=== PATIENT | female | born 1960 ===

== ENCOUNTER 2016-09-25 00:56 | Emergency (ER) | payer MEDICARE, MEDICAID ==
[2016-09-25 00:56] VITALS: BMI 26.6
[2016-09-25] MEDS ORDERED: Sodium Chloride 0.9% 1,000 ML IV ONE (01:48)
[2016-09-25] MEDS ORDERED: Sodium Chloride 0.9% 1,000 ML ONE (02:00)
[2016-09-25] MEDS ORDERED: Morphine 4 MG/ML VIAL ONE (02:01)
[2016-09-25 02:02] LABS: BASO # 0.2 K/uL (0.0-0.2); BASO % 1.2 % (0.0-2.0); EOS # 0.2 K/uL (0.0-0.7); EOS % 1.3 % (0.0-4.0); HEMATOCRIT 37.3 % (34.0-47.0); LYMPH # 3.5 K/uL (1.0-4.3); LYMPH % 26.2 % (20.0-40.0); MEAN CELL VOLUME 92.3 fL (81.0-99.0); MEAN CORPUSCULAR HEMOGLOBIN 30.4 pg (27.0-31.0); MEAN PLATELET VOLUME 7.9 fL (7.2-11.7); MONO # 0.9 K/uL (0.0-0.8); MONO % 7.1 % (0.0-10.0); WHITE BLOOD COUNT 13.2 K/uL (4.8-10.8)
[2016-09-25 02:12] LABS: CHLORIDE 101 mmol/L (98-107); POTASSIUM 3.7 mmol/L (3.6-5.2); SODIUM 135 mmol/L (132-148)
[2016-09-25 02:14] LABS: AST/SGOT 13 U/L (14-36); BILIRUBIN,TOTAL < 0.1 mg/dL (0.2-1.3); CARBON DIOXIDE 26 mmol/L (22-30); GFR AFRICAN-AMERICAN > 60
[2016-09-25 02:15] LABS: ALB/GLOB RATIO 1.3 (1.0-2.1); ALKALINE PHOSPHATASE 64 U/L (38-126); ALT/SGPT 26 U/L (9-52); BLOOD UREA NITROGEN 16 mg/dL (7-17); CALCIUM 8.3 mg/dl (8.6-10.4); GLUCOSE,RANDOM 133 mg/dL (65-105); TOTAL PROTEIN 6.7 g/dL (6.3-8.3)
[2016-09-25 02:42] LABS: RBC URINE 1 /hpf (0-3); URINE BILIRUBIN NEGATIVE (NEGATIVE); URINE BLOOD 1+ (NEGATIVE); URINE COLOR Straw (YELLOW); URINE GLUCOSE (UA) NORMAL (Normal); URINE KETONE NEGATIVE (NEGATIVE); URINE LEUKOCYTE ESTERASE NEG Leu/uL (Negative); URINE PROTEIN NEGATIVE (NEGATIVE); URINE UROBILINOGEN NORMAL mg/dL (0.2-1.0)
--- NOTE | 2016-09-25 02:52 | C.PDOC ---
History Of Present Illness A 55 y/o female presents to the ER c/o mid sternal chest pain that is non- radiating for 3 days, Pt notes pain worsens with movement and deep breathing. Pt reports pain to the lower back, and reports having a neuro-stimulater put in 20 days and activated 4 days ago and is now having back pain. Pt denies trauma, nausea, vomiting, no diaphoresis, numbness, weakness, or bowel/bladder incontinence. Time Seen by Provider: 09/25/16 01:25 Chief Complaint (Nursing): Chest Pain History Per: Patient History/Exam Limitations: no limitations Onset/Duration Of Symptoms: Days Current Symptoms Are (Timing): Still Present Severity: Mild Associated Symptoms: denies: Dyspnea, Diaphoresis Exacerbating Factors: Movement, Deep Breathing Recent travel outside of the [place]: No Additional History Per: Patient Past Medical History Reviewed: Historical Data, Nursing Documentation, Vital Signs Vital Signs: Last Vital Signs Temp 99.4 F 09/25/16 04:27 Pulse 85 09/25/16 04:27 Resp 15 09/25/16 04:27 BP 133/67 09/25/16 04:27 Pulse Ox 96 09/25/16 04:27 - Medical History PMH: Anxiety, Arthritis, Asthma, Back Problems (fractured disc had surgery 2 yrs. ago), Bronchitis, Depression, Diabetes, Diverticulitis, Emphysema, Gastritis, HTN, Hypercholesterolemia, Osteoporosis, Pneumonia Denies: Chronic Kidney Disease Surgical History: Back Surgery, Cholecystectomy - [facility] Procedures EXCISION INTERVERT DISC (09/17/14) FUSION/REFUS OF 2-3 VERTEBRAE (09/17/14) INSERTION OF INTERBODY SPINAL FUSION DEVICE (09/17/14) OTH CERVICAL FUSION OF ANTERIOR COLUMN, ANTERIOR TECHNIQUE (09/17/14) REPLACE OF R KNEE JT WITH SYNTH SUB, CEMENT, OPEN APPROACH (03/22/16) Family History: States: Unknown Family Hx - Social History Hx Tobacco Use: Yes Hx Alcohol Use: No Hx Substance Use: No - Immunization History Hx Tetanus Toxoid Vaccination: No Hx Influenza Vaccination: Yes Hx Pneumococcal Vaccination: Yes Review Of Systems Except As Marked, All Systems Reviewed And Found Negative. Constitutional: Negative for: Sweats, Other ([place]) Cardiovascular: Positive for: Chest Pain (Mid sternal chest pain) Gastrointestinal: Negative for: Nausea, Vomiting Neurological: Negative for: Weakness, Numbness Physical Exam - Physical Exam Appears: Non-toxic, No Acute Distress Skin: Warm, Dry, No Rash Head: Atraumatic, Normacephalic Eye(s): bilateral: Normal Inspection Oral Mucosa: Moist Neck: Normal ROM, No Midline Cervical Tenderness, No Paracervical Tenderness, Supple Chest: Symmetrical, Tenderness (mild interior chest wall tenderness), No Ecchymosis, No Subcutaneous Emphysema Cardiovascular: Rhythm Regular, No Friction Rub, No Murmur Respiratory: Normal Breath Sounds, No Rales, No Rhonchi, No Stridor, No Wheezing Gastrointestinal/Abdominal: Bowel Sounds (active), Soft, No Tenderness Back: Normal Inspection, No CVA Tenderness Extremity: Normal ROM, No Tenderness, No Swelling Extremity: Bilateral: Normal Color And Temperature Pulses: Left Dorsalis Pedis: Normal, Right Dorsalis Pedis: Normal Neurological/Psych: Oriented x3, Normal Speech, Normal Cognition, Normal Motor Gait: Steady ED Course And Treatment - Laboratory Results Result Diagrams: 09/25/16 01:58 09/25/16 01:58 ECG: Interpreted By Me, Viewed By Ks ECG Rhythm: Sinus Rhythm ECG Interpretation: Normal Rate From EC O2 Sat by Pulse Oximetry: 98 (RA) Pulse Ox Interpretation: Normal - Radiology CXR: Interpreted by Me CXR Interpretation: Yes: No Acute Disease, Mediastinum (normal size). No: Infiltrates, Pnemothorax Medical Decision Making Medical Decision Making: Plans: -CXR -Morphine -Zofran -Protonix -IV fluids -Reassess and disposition On re-exam, the patient reports improvement of symptoms. Lungs are CTA, heart is RRR, abdomen is soft, non-tender and patient is tolerating Po well. Follow up with the medical doctor within 1-2 days without fail, Return if worsened. Clinical presentation is not suggestive of AAA. aortic dissection or ACS, as the patient's symptoms are pleuritic and muscular in nature. Disposition - Disposition Referrals: [facility] [Outside] Disposition: HOME/ ROUTINE Disposition Time: 04:22 Condition: IMPROVED Additional Instructions: Follow up with the medical doctor within 1-2 days without fail, Return if worsened. Prescriptions: traMADol [Ultram] 50 mg PO Q6 PRN #20 tab PRN Reason: Pain Instructions: Musculoskeletal Pain (ED) - Clinical Impression Clinical Impression: Musculoskeletal chest pain, Back pain - Scribe Statement The provider has reviewed the documentation as recorded by the Scribe Nolvia dodd All medical record entries made by the Scribe were at my direction and personally dictated by me. I have reviewed the chart and agree that the record accurately reflects my personal performance of the history, physical exam, medical decision making, and the department course for this patient. I have also personally directed, reviewed, and agree with the discharge instructions and disposition.
[2016-09-25 04:28] VITALS: BP 133/67; PULSE 85; RESP 15; TEMP 99.4
[2016-09-25 05:48] VITALS: O2SAT 98
--- NOTE | 2016-09-25 11:51 | RAD ---
HISTORY: chest pain, cough COMPARISON: Comparison is made to 04/19/2016 FINDINGS: LUNGS: No evidence of new infiltrate or consolidation in the lungs. PLEURA: No significant pleural effusion identified, no pneumothorax apparent. CARDIOVASCULAR: Normal. OSSEOUS STRUCTURES: No significant abnormalities. VISUALIZED UPPER ABDOMEN: Normal. OTHER FINDINGS: Stimulator device wires seen overlying the thoracic spine. IMPRESSION: No active disease.
--- NOTE | 2016-09-27 09:46 | CARD ---
APPROVED REPORT EKG Measurement Heart [id number] VA [id number] [id number] <Conclusion> Sinus rhythm with short VA Low voltage QRS Cannot rule out Inferior infarct, age undetermined Abnormal ECG
== END 2016-09-25 04:34 | disposition home or self-care (01) ==
LOC: C.ER 00:56
DX: R07.89 Other chest pain (principal); M54.9 Dorsalgia, unspecified
CPT/HCPCS: 71010; 80053; 81001; 83690; 84484; 85025; 93005; 96361; 96374; 96375; 99285; C9113; J2270; J2405; J7040

== ENCOUNTER 2016-12-10 01:19 | Emergency (ER) | payer OTHER ==
[2016-12-10 01:20] VITALS: BMI 26.6
[2016-12-10] MEDS ORDERED: Sodium Chloride 0.9% 1,000 ML IV ONE (02:13)
[2016-12-10] MEDS ORDERED: Albuterol-Ipratrop 3 mg / 0.5 (3 ml) UD INH STA (02:14)
--- NOTE | 2016-12-10 02:16 | C.PDOC ---
History Of Present Illness 56 year old female who presents to the ER with a complaint of sudden onset of SOB, coughing, chest pain, and neck pain. Patient states the chest pain and neck pain is a result of constant coughing. Patient has a Hx of back pain for which she had surgery for. Denies nausea, vomiting, weakness, or numbness. Chief Complaint (Nursing): Back Pain History Per: Patient History/Exam Limitations: no limitations Onset/Duration Of Symptoms: Hrs, Sudden Onset Current Symptoms Are (Timing): Still Present Quality Of Discomfort: Unable To Describe Severity: None Previous Symptoms: Back Pain Associated Symptoms: None Recent travel outside of the [place]: No Past Medical History Reviewed: Historical Data, Nursing Documentation, Vital Signs Vital Signs: Last Vital Signs Temp 98 F 12/10/16 06:14 Pulse 100 H 12/10/16 06:14 Resp 20 12/10/16 06:14 BP 170/80 H 12/10/16 06:14 Pulse Ox 99 12/10/16 06:14 - Medical History PMH: Anxiety, Arthritis, Asthma, Back Problems (fractured disc had surgery 2 yrs. ago), Bronchitis, Depression, Diabetes, Diverticulitis, Emphysema, Gastritis, HTN, Hypercholesterolemia, Osteoporosis, Pneumonia Surgical History: Back Surgery, Cholecystectomy - [facility] Procedures EXCISION INTERVERT DISC (09/17/14) FUSION/REFUS OF 2-3 VERTEBRAE (09/17/14) INSERTION OF INTERBODY SPINAL FUSION DEVICE (09/17/14) OTH CERVICAL FUSION OF ANTERIOR COLUMN, ANTERIOR TECHNIQUE (09/17/14) REPLACE OF R KNEE JT WITH SYNTH SUB, CEMENT, OPEN APPROACH (03/22/16) Family History: States: Unknown Family Hx - Social History Hx Tobacco Use: Yes Hx Alcohol Use: No Hx Substance Use: No - Immunization History Hx Tetanus Toxoid Vaccination: No Hx Influenza Vaccination: Yes Hx Pneumococcal Vaccination: Yes Review Of Systems Constitutional: Negative for: Fever, Chills Cardiovascular: Positive for: Chest Pain Respiratory: Positive for: Cough, Shortness of Breath Gastrointestinal: Negative for: Nausea, Vomiting Musculoskeletal: Positive for: Neck Pain, Back Pain Neurological: Negative for: Weakness, Numbness Physical Exam - Physical Exam Appears: Non-toxic, No Acute Distress Skin: Normal Color, Warm, Dry Head: Atraumatic, Normacephalic Oral Mucosa: Moist Chest: Symmetrical, No Tenderness Cardiovascular: Rhythm Regular, No Murmur Respiratory: Normal Breath Sounds, No Rales, No Rhonchi, No Wheezing Gastrointestinal/Abdominal: Soft, No Tenderness Neurological/Psych: Oriented x3, Normal Speech, Normal Cognition ED Course And Treatment - Laboratory Results Result Diagrams: 12/10/16 02:26 12/10/16 02:26 ECG: Interpreted By Me, Viewed By Me ECG Rhythm: Sinus Rhythm ECG Interpretation: No Acute Changes Interpretation Of ECG: NSR, low voltage QRS, no acute changes. Rate From EC O2 Sat by Pulse Oximetry: 99 (Room air) Pulse Ox Interpretation: Normal Progress Note: EKG, blood work, and CXR ordered. Nebulizer treatment, toradol, and IV fluids administered. Disposition Counseled Patient/Family Regarding: Diagnosis - Disposition Referrals: [facility] [Outside] Disposition: HOME/ ROUTINE Disposition Time: 06:45 Condition: STABLE Prescriptions: Albuterol HFA [Ventolin HFA 90 mcg/actuation (8 g)] 2 puff IH [id number] #1 bottle Azithromycin [Zithromax] 500 mg PO DAILY #7 tablet oxyCODONE/Acetaminophen [Percocet 5/325 mg Tab] 1 tab PO QID PRN #20 tab PRN Reason: Pain Instructions: Upper Respiratory Infection (ED), Asthma (DC), Back Pain (ED) Forms: [employer] (Lao) Print Language: RUSSIAN - POA Present On Arrival: None - Clinical Impression Clinical Impression: Neck pain, Respiratory tract infection, Asthma - Scribe Statement The provider has reviewed the documentation as recorded by the Scribdalia Aly All medical record entries made by the Klausibdalia were at my direction and personally dictated by me. I have reviewed the chart and agree that the record accurately reflects my personal performance of the history, physical exam, medical decision making, and the department course for this patient. I have also personally directed, reviewed, and agree with the discharge instructions and disposition.
[2016-12-10] MEDS ORDERED: Albuterol-Ipratrop 3 mg / 0.5 (3 ml) UD ONE ×2 (02:21→02:45)
[2016-12-10] MEDS ORDERED: Sodium Chloride 0.9% 1,000 ML ONE (02:25)
[2016-12-10 02:32] LABS: BASO # 0.1 K/uL (0.0-0.2); BASO % 0.8 % (0.0-2.0); EOS # 0.3 K/uL (0.0-0.7); EOS % 2.9 % (0.0-4.0); HEMATOCRIT 39.1 % (34.0-47.0); LYMPH # 2.2 K/uL (1.0-4.3); LYMPH % 22.3 % (20.0-40.0); MEAN CELL VOLUME 91.2 fL (81.0-99.0); MEAN CORPUSCULAR HEMOGLOBIN 30.5 pg (27.0-31.0); MEAN CORPUSCULAR HGB CONC 33.4 g/dL (33.0-37.0); MEAN PLATELET VOLUME 7.9 fL (7.2-11.7); MONO # 0.9 K/uL (0.0-0.8); MONO % 8.9 % (0.0-10.0); RED CELL DISTRIBUTION WIDTH 12.9 % (11.5-14.5); WHITE BLOOD COUNT 9.7 K/uL (4.8-10.8)
[2016-12-10 02:35] LABS: CHLORIDE 101 mmol/L (98-107)
[2016-12-10 02:36] LABS: POTASSIUM 3.7 mmol/L (3.6-5.2); SODIUM 141 mmol/L (132-148)
[2016-12-10 02:38] LABS: ALB/GLOB RATIO 1.2 (1.0-2.1); AST/SGOT 27 U/L (14-36); BILIRUBIN,TOTAL 0.4 mg/dL (0.2-1.3); BLOOD UREA NITROGEN 18 mg/dL (7-17); CARBON DIOXIDE 27 mmol/L (22-30); GFR AFRICAN-AMERICAN > 60; TOTAL PROTEIN 6.7 g/dL (6.3-8.3)
[2016-12-10 02:39] LABS: ALKALINE PHOSPHATASE 66 U/L (38-126); ALT/SGPT 28 U/L (9-52); CALCIUM 8.4 mg/dl (8.6-10.4); GLUCOSE,RANDOM 140 mg/dL (65-105)
[2016-12-10] MEDS ORDERED: Iodixanol 320 MG/ML 100 ML BOTTLE IV ONE (03:26)
[2016-12-10] MEDS ORDERED: Morphine 4 MG/ML VIAL ONE (04:00)
--- NOTE | 2016-12-10 06:13 | CT ---
EXAM: CT Angiography Chest With Intravenous Contrast CLINICAL HISTORY: 56 years old, female; Pain; Chest pain; Additional info: SOB, elev. D-dimer, post-op TECHNIQUE: Axial computed tomographic angiography images of the chest with intravenous contrast using pulmonary embolism protocol. This CT exam was performed using one or more of the following dose reduction techniques: automated exposure control, adjustment of the mA and/or kV according to patient size, and/or use of iterative reconstruction technique. MIP reconstructed images were created and reviewed. Coronal and sagittal reformatted images were created and reviewed. CONTRAST: 100 mL of visiapaque administered intravenously. EXAM DATE/TIME: 12/10/2016 3:16 AM COMPARISON: CR - CHEST TWO VIEWS (PA/LAT) 07/26/2015 8:22:30 AM FINDINGS: Electrode stimulator leads in the posterior spinal canal. There are faint scattered groundglass opacities bilaterally, a nonspecific finding although conceivably could represent very early mild inflammatory/infectious process. No focal infiltrates. No pulmonary embolism. No aortic dissection or aneurysm. No pleural or pericardial effussions. No pulmonary consolidation. A few small mediastinal lymph nodes are noted. IMPRESSION: Few scattered nonspecific groundglass opacities bilaterally.
[2016-12-10 06:14] VITALS: TEMP 98
[2016-12-10] MEDS ORDERED: cefTRIAXone IV 1 gm in Dextros 50 ML IVPB ONE ×2 (06:19→06:24)
[2016-12-10] MEDS ORDERED: Azithromycin 500mg/250ML NS 500 MG/250 ML BAG IV STA (06:19)
[2016-12-10] MEDS ORDERED: Azithromycin 500mg/250ML NS 500 MG/250 ML BAG IVPB ONE (06:25)
[2016-12-10 07:02] VITALS: BP 145/79; PULSE 86; RESP 16; O2SAT 97
--- NOTE | 2016-12-10 09:58 | RAD ---
HISTORY: COMPARISON: 09/25/2016 TECHNIQUE: Chest PA and lateral FINDINGS: LINES AND TUBES: None. LUNG AND PLEURA: Lungs are clear. There are no pleural effusions or pneumothorax. HEART AND MEDIASTINUM: The heart is not enlarged. The hilar and mediastinal contours are within normal limits. SKELETAL STRUCTURES: The bony structures are within normal limits for the patient's age. VISUALIZED UPPER ABDOMEN: Normal. OTHER FINDINGS: Neurostimulator device wires overlies the spine. Status post ACDF in the lower cervical spine IMPRESSION: No active pulmonary disease.
--- NOTE | 2016-12-19 08:54 | CARD ---
APPROVED REPORT EKG Measurement Heart [id number] CA 154P70 [id number] <Conclusion> Normal sinus rhythm Low voltage QRS Borderline ECG
== END 2016-12-10 08:22 | disposition home or self-care (01) ==
LOC: C.ER 01:19
DX: J45.909 Unspecified asthma, uncomplicated (principal); J98.8 Other specified respiratory disorders; M54.2 Cervicalgia
CPT/HCPCS: 71020; 71275; 80053; 84484; 85025; 85378; 94640; 96374; 96375; 99285; J0456; J0696; J1170; J1885; J2270; J7040; Q9967

== ENCOUNTER 2017-03-02 01:05 | Emergency (ER) | payer MEDICARE, OTHER ==
[2017-03-02 01:06] VITALS: BMI 26.6
[2017-03-02 01:20] VITALS: TEMP 98.2; O2SAT 97
[2017-03-02] MEDS ORDERED: Sodium Chloride 0.9% 1,000 ML IV SCH (01:45)
[2017-03-02 03:27] VITALS: BP 162/84; PULSE 82; RESP 18
--- NOTE | 2017-03-02 03:39 | C.PDOC ---
Time Seen by Provider: 03/02/17 01:34 Chief Complaint (Nursing): Headache Past Medical History Vital Signs: Last Vital Signs Temp 98.2 F 03/02/17 01:16 Pulse 82 03/02/17 03:26 Resp 18 03/02/17 03:26 BP 162/84 H 03/02/17 03:26 Pulse Ox 97 03/02/17 03:26 - Medical History PMH: Anxiety, Arthritis, Asthma, Back Problems (fractured disc had surgery 2 yrs. ago), Bronchitis, Depression, Diabetes, Diverticulitis, Emphysema, Gastritis, HTN, Hypercholesterolemia, Osteoporosis, Pneumonia Denies: Chronic Kidney Disease Surgical History: Back Surgery, Cholecystectomy - [facility] Procedures EXCISION INTERVERT DISC (09/17/14) FUSION/REFUS OF 2-3 VERTEBRAE (09/17/14) INSERTION OF INTERBODY SPINAL FUSION DEVICE (09/17/14) OTH CERVICAL FUSION OF ANTERIOR COLUMN, ANTERIOR TECHNIQUE (09/17/14) REPLACE OF R KNEE JT WITH SYNTH SUB, CEMENT, OPEN APPROACH (03/22/16) Family History: States: Unknown Family Hx - Social History Hx Tobacco Use: Yes Hx Alcohol Use: No Hx Substance Use: No - Immunization History Hx Tetanus Toxoid Vaccination: No Hx Influenza Vaccination: No Hx Pneumococcal Vaccination: Yes ED Course And Treatment O2 Sat by Pulse Oximetry: 97 Disposition - Disposition Referrals: Non [facility] Provider, [Primary Care Provider] - Forms: [employer] ([facility]: [place]) (Pashto)
--- NOTE | 2017-03-02 03:40 | C.PDOC ---
History Of Present Illness 56 year old female, whose PMHx includes chronic pain, chronic headaches, chronic back pain and neuropathy (currently undergoing extensive pain management ), presents to the ED for evaluation of intermittent headaches which began around 2 months ago. Patient states she has been finding minimal relief with her PO medication at home and presents to the ED requesting IV medication. Patient also reports pain to her bilateral lower legs and hips, which she states is consistent with her neuropathic pain. Otherwise, patient denies current symptoms as worst headache of her life, dizziness, nausea, vomiting, or recent head trauma. Time Seen by Provider: 03/02/17 01:34 Chief Complaint (Nursing): Headache History Per: Patient History/Exam Limitations: no limitations Onset/Duration Of Symptoms: Intermittent Episodes, Other (2 months ) Current Symptoms Are (Timing): Still Present Quality: "Pain" Preceeding Symptoms: denies: Visual Disturbances Associated Symptoms: denies: Photophobia, Blurred Vision, Nausea, Vomiting Additional History Per: Patient Past Medical History Reviewed: Historical Data, Nursing Documentation, Vital Signs Vital Signs: Last Vital Signs Temp 98.2 F 03/02/17 01:16 Pulse 82 03/02/17 03:26 Resp 18 03/02/17 03:26 BP 162/84 H 03/02/17 03:26 Pulse Ox 97 03/02/17 05:11 - Medical History PMH: Anxiety, Arthritis, Asthma, Back Problems (fractured disc had surgery 2 yrs. ago), Bronchitis, Depression, Diabetes, Diverticulitis, Emphysema, Gastritis, HTN, Hypercholesterolemia, Osteoporosis, Pneumonia Denies: Chronic Kidney Disease Surgical History: Back Surgery, Cholecystectomy - [facility] Procedures EXCISION INTERVERT DISC (09/17/14) FUSION/REFUS OF 2-3 VERTEBRAE (09/17/14) INSERTION OF INTERBODY SPINAL FUSION DEVICE (09/17/14) OTH CERVICAL FUSION OF ANTERIOR COLUMN, ANTERIOR TECHNIQUE (09/17/14) REPLACE OF R KNEE JT WITH SYNTH SUB, CEMENT, OPEN APPROACH (03/22/16) Family History: States: Unknown Family Hx - Social History Hx Tobacco Use: Yes Hx Alcohol Use: No Hx Substance Use: No - Immunization History Hx Tetanus Toxoid Vaccination: No Hx Influenza Vaccination: No Hx Pneumococcal Vaccination: Yes Review Of Systems Gastrointestinal: Negative for: Vomiting Musculoskeletal: Positive for: Leg Pain (B/L) Neurological: Positive for: Headache. Negative for: Dizziness Physical Exam - Physical Exam Appears: Non-toxic, No Acute Distress Skin: Normal Color, Warm, Dry Head: Atraumatic, Normacephalic Eye(s): bilateral: Normal Inspection, PERRL, EOMI Ear(s): Bilateral: Normal Oral Mucosa: Moist Neck: Supple Chest: Symmetrical, No Deformity Cardiovascular: Rhythm Regular, No Murmur Respiratory: Normal Breath Sounds Extremity: Normal ROM, No Tenderness, Capillary Refill (less than 2 seconds ), No Deformity, No Swelling Neurological/Psych: Oriented x3, Normal Speech, Normal Cognition Gait: Steady ED Course And Treatment O2 Sat by Pulse Oximetry: 97 (on RA) Pulse Ox Interpretation: Normal Progress Note: Reglan IV, Toradol IV, and IV Fluids administered. Patient's records on [facility] reviewed: patient is currently taking 10mg Percocet as prescribed, Pt just received spinal injection yesterday. On reassessment, patient is sleeping comfortably on her bed, showing no signs of distress, and reports an improvement in her symptoms. Patient is stable for discharge and is advised to follow up with pain management within 1-2 days for further evaluation. 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 - Scribe Statement The provider has reviewed the documentation as recorded by the Scribe (Consuelo Monk) All medical record entries made by the Scribe were at my direction and personally dictated by me. I have reviewed the chart and agree that the record accurately reflects my personal performance of the history, physical exam, medical decision making, and the department course for this patient. I have also personally directed, reviewed, and agree with the discharge instructions and disposition.
== END 2017-03-02 03:47 | disposition home or self-care (01) ==
LOC: SUPCPDRO 01:05 → C.ER 01:05
DX: G89.29 Other chronic pain (principal); E11.9 Type 2 diabetes mellitus without complications; E78.00 Pure hypercholesterolemia, unspecified; I10 Essential (primary) hypertension; M81.0 Age-related osteoporosis without current pathological fracture; Z87.891 Personal history of nicotine dependence
CPT/HCPCS: 82948; 96374; 96375; 99284; J1885; J2765

== ENCOUNTER 2017-05-30 17:47 | Inpatient (IN) | payer MEDICARE, OTHER ==
[2017-05-30 17:48] VITALS: BMI 26.6
[2017-05-30] MEDS ORDERED: Albuterol-Ipratrop 3 mg / 0.5 (3 ml) UD INH STA ×2 (18:15→19:59)
[2017-05-30] MEDS ORDERED: Azithromycin 500 MG in Sodium Chloride 0.9% 250 ML IVPB STA (18:16)
--- NOTE | 2017-05-30 18:25 | C.PDOC ---
History Of Present Illness 56 year old female with PMHx of DM, asthma is brought to the ED via EMS for evaluation of SOB, productive cough with yellow sputum for the past 3 weeks. Patient states she still uses tobacco, was given nebulizer treatment and solumedrol en route by EMS. Patient required immediate attention, upon arrival to the ED patient was saturating between 80 and 90 %. Patient denies fever, chills, nausea, vomit, CP, diarrhea, abdominal pain, weakness, numbness, hx of intubations. Time Seen by Provider: 05/30/17 18:02 Chief Complaint (Nursing): Shortness Of Breath History Per: Patient, EMS History/Exam Limitations: no limitations Onset/Duration Of Symptoms: Days Current Symptoms Are (Timing): Still Present Quality: "Pain" Associated Symptoms: Productive Cough Recent travel outside of the [place]: No Additional History Per: Patient Past Medical History Reviewed: Historical Data, Nursing Documentation, Vital Signs Vital Signs: Last Vital Signs Temp 98.3 F 05/30/17 17:55 Pulse 86 05/30/17 19:12 Resp 14 05/30/17 19:12 BP 117/62 05/30/17 19:12 Pulse Ox 97 05/30/17 20:01 - Medical History PMH: Anxiety, Arthritis, Asthma, Back Problems (fractured disc had surgery 2 yrs. ago), Bronchitis, Depression, Diabetes, Diverticulitis, Emphysema, Gastritis, HTN, Hypercholesterolemia, Osteoporosis, Pneumonia Denies: Chronic Kidney Disease Surgical History: Back Surgery, Cholecystectomy - [facility] Procedures EXCISION INTERVERT DISC (09/17/14) FUSION/REFUS OF 2-3 VERTEBRAE (09/17/14) INSERTION OF INTERBODY SPINAL FUSION DEVICE (09/17/14) OTH CERVICAL FUSION OF ANTERIOR COLUMN, ANTERIOR TECHNIQUE (09/17/14) REPLACE OF R KNEE JT WITH SYNTH SUB, CEMENT, OPEN APPROACH (03/22/16) Family History: States: Unknown Family Hx - Social History Hx Tobacco Use: Yes Hx Alcohol Use: No Hx Substance Use: No - Immunization History Hx Tetanus Toxoid Vaccination: No Hx Influenza Vaccination: No Hx Pneumococcal Vaccination: Yes Review Of Systems Constitutional: Negative for: Fever, Chills Cardiovascular: Negative for: Chest Pain, Palpitations Respiratory: Positive for: Cough, Shortness of Breath, Sputum Gastrointestinal: Negative for: Nausea, Vomiting, Abdominal Pain, Diarrhea Musculoskeletal: Negative for: Back Pain Skin: Negative for: Rash Neurological: Negative for: Weakness, Numbness, Headache Physical Exam - Physical Exam Appears: Non-toxic, No Acute Distress Skin: Normal Color, Warm, Dry Head: Atraumatic, Normacephalic Eye(s): bilateral: Normal Inspection Nose: No Discharge, No Deformity Oral Mucosa: Moist Neck: Normal ROM, Supple Chest: Symmetrical Cardiovascular: Rhythm Regular, No Murmur Respiratory: No Rales, No Rhonchi, Wheezing (diffuse expiratory) Gastrointestinal/Abdominal: Soft, No Tenderness, No Guarding, No Rebound Extremity: Normal ROM, No Pedal Edema, No Calf Tenderness, No Deformity, No Swelling Neurological/Psych: Oriented x3, Normal Speech, Normal Cognition Gait: Steady ED Course And Treatment - Laboratory Results Result Diagrams: 05/30/17 18:24 05/30/17 18:24 ECG: Interpreted By Me, Viewed By Me ECG Rhythm: Sinus Rhythm Interpretation Of ECG: Normal intervals, normal axis, no ST or T wave abnormalities Rate From EC O2 Sat by Pulse Oximetry: 97 (On RA) Pulse Ox Interpretation: Normal Medical Decision Making Medical Decision Making: Impression : cough , SOB Plan: * EKG * Labs * CXR * Albuterol 3 ml INH * Rocephin 1 gm in 100 ml IVPB * Zithromax 500 mg in 250 ml IVPB * Nebulizer treatment (3) * Influenza A B * Blood culture * * preliminary reading of cxr - nad Spoke with Dr. Peter, patient will be admitted under his service for asthma exacerbation. Disposition Discussed With : Dwaine Peter Doctor Will See Patient In The: Hospital Counseled Patient/Family Regarding: Studies Performed, Diagnosis - Disposition Disposition Time: 19:59 Condition: FAIR - Clinical Impression Clinical Impression: Bronchitis, Status asthmaticus - Scribe Statement The provider has reviewed the documentation as recorded by the Scribe Fredy Avila All medical record entries made by the Scribe were at my direction and personally dictated by me. I have reviewed the chart and agree that the record accurately reflects my personal performance of the history, physical exam, medical decision making, and the department course for this patient. I have also personally directed, reviewed, and agree with the discharge instructions and disposition.
[2017-05-30] MEDS ORDERED: Albuterol-Ipratrop 3 mg / 0.5 (3 ml) UD ONE (18:28)
[2017-05-30 18:30] LABS: BASO # 0.1 K/uL (0.0-0.2); BASO % 0.5 % (0.0-2.0); EOS % 0.4 % (0.0-4.0); HEMOGLOBIN 12.2 g/dL (11.0-16.0); LYMPH # 2.9 K/uL (1.0-4.3); LYMPH % 31.5 % (20.0-40.0); MEAN CELL VOLUME 89.5 fL (81.0-99.0); MEAN CORPUSCULAR HEMOGLOBIN 29.7 pg (27.0-31.0); MEAN CORPUSCULAR HGB CONC 33.1 g/dL (33.0-37.0); MEAN PLATELET VOLUME 8.2 fL (7.2-11.7); MONO % 11.4 % (0.0-10.0); NEUT # 5.2 K/uL (1.8-7.0); NEUT % 56.2 % (50.0-75.0); NRBC % 0.1 % (0.0-2.0); RBC 4.13 Mil/uL (3.80-5.20); RED CELL DISTRIBUTION WIDTH 13.5 % (11.5-14.5); WHITE BLOOD COUNT 9.2 K/uL (4.8-10.8)
[2017-05-30 18:41] LABS: ALB/GLOB RATIO 0.9 (1.0-2.1); ALBUMIN 3.5 g/dL (3.5-5.0); ALT/SGPT 19 U/L (9-52); AST/SGOT 16 U/L (14-36); BLOOD UREA NITROGEN 12 mg/dL (7-17); CALCIUM 7.3 mg/dl (8.6-10.4); GFR AFRICAN-AMERICAN > 60; GFR NON-AFRICAN AMERICAN > 60
[2017-05-30 18:52] LABS: B-TYPE NATRIURETIC PEPTIDE 44.1 pg/mL (0-900)
[2017-05-30] MEDS ORDERED: Oxycodone/Acetaminophen 5/325 mg Tab ONE (22:47)
[2017-05-30] MEDS: Oxycodone/Acetaminophen 5/325 mg Tab PO PRN (22:53)
[2017-05-31] MEDS ORDERED: Albuterol-Ipratrop 3 mg / 0.5 (3 ml) UD INH PRN (01:31)
[2017-05-31] MEDS ORDERED: Albuterol-Ipratrop 3 mg / 0.5 (3 ml) UD ONE ×3 (01:35→08:37)
[2017-05-31] MEDS ORDERED: Oxycodone/Acetaminophen 5/325 mg Tab ONE ×2 (02:41→06:42)
[2017-05-31] MEDS: Oxycodone/Acetaminophen 5/325 mg Tab PO PRN ×4 (02:50→19:13)
[2017-05-31] MEDS: Albuterol 0.083% Inhal Sol (2.5 mg/3 mL) UD INH PRN ×3 (06:35→19:52)
[2017-05-31] MEDS: guaiFENesin 100 mg/5 ml Syrup UD PO PRN ×2 (06:38→22:26)
[2017-05-31] MEDS ORDERED: guaiFENesin 100 mg/5 ml Syrup UD ONE (06:38)
[2017-05-31] MEDS ORDERED: Morphine 4 MG/ML VIAL ONE (06:43)
--- NOTE | 2017-05-31 08:09 | RAD ---
PROCEDURE: CHEST RADIOGRAPH, 1 VIEW HISTORY: SOB COMPARISON: Chest radiographs 12/10/2016. FINDINGS: LUNGS: No acute infiltrate identified bilaterally. PLEURA: No pneumothorax or pleural fluid seen. CARDIOVASCULAR: Normal. OSSEOUS STRUCTURES: Neural stimulator again appreciated in the thoracic spine. Additional radiodense wires are appreciated previously overlying the plane of the cervicothoracic spine are now seen somewhat deviated toward the left thorax and in part still overlying the inferior cervical spine as imaged. VISUALIZED UPPER ABDOMEN: Normal. OTHER FINDINGS: None. IMPRESSION: No acute cardiopulmonary disease appreciable in the interval. Spinal neural stimulator again appreciated with additional wires seen overlying the thoracic spine now deviated laterally.
[2017-05-31] MEDS: Divalproex 125 mg DR Tab PO SCH (11:00)
[2017-05-31] MEDS: buPROPion SR 150 MG TABLET PO SCH (11:00)
[2017-05-31 11:07] VITALS: RESP 20
--- NOTE | 2017-05-31 11:43 | CP.PCM.PN ---
Subjective - Date & Time of Evaluation Date of Evaluation: 05/31/17 Time of Evaluation: 11:32 - Subjective Subjective: PGY2 progress note for Dr. Peter 56 year old female with past medical history of DM, COPD, diverticulosis, depresison, neuropathy, chronic neck and back pain presented to ED for shortness of breath and cough ongoing for 3 weeks. Cough is productive with yellowish sputum. Patient also complains of epigastric pain with coughing. Pt also c/o nausea/ F/C. Denies having any CP. Patient has history of COPD for which she uses home O2 prn. She also continues to smoke about 1 ppd. Denies having any sick contacts or recent travels. Pt states for past 3 months, she has been having dysphagia with solid foods occasionally. Currently pt is on NC complaining of shortness of breath. Denies having any CP, abd pain, N/V/D/C. PMHx; stated above PSHx: Carpal Tunnel bilateral, Right Knee replacement 04/01/16, Cervical fusion , Lumbar fusion. Family Hx: Denies Social: 1ppd for 30+ years, No ETOH, No Drugs. Lives alone in apartment NKDA Meds: See MAR Objective - Vital Signs/Intake and Output Vital Signs (last 24 hours): Temp Pulse Resp BP Pulse Ox 98 F 99 H 20 113/57 L 95 05/31/17 06:12 05/31/17 11:05 05/31/17 11:05 05/31/17 11:05 05/31/17 11:05 - Medications Medications: Current Medications Albuterol Sulfate (Albuterol 0.083% Inhal Angela (2.5 Mg/3 Ml) Ud) 2.5 mg INH RQ2 PRN PRN Reason: Shortness of Breath Last Admin: 05/31/17 08:30 Dose: 2.5 mg Aspirin (Ecotrin) 81 mg PO DAILY [facility] Last Admin: 05/31/17 11:00 Dose: 81 mg Bupropion HCl (Wellbutrin Sr 150 Mg) 150 mg PO DAILY [facility] Last Admin: 05/31/17 11:00 Dose: 150 mg Divalproex Sodium (Depakote Dr Tab) 125 mg PO DAILY [facility] Last Admin: 05/31/17 11:00 Dose: 125 mg Gabapentin (Neurontin) 200 mg PO TID [facility] Last Admin: 05/31/17 11:00 Dose: 200 mg Guaifenesin (Robitussin) 100 mg PO Q4H PRN PRN Reason: Cough Last Admin: 05/31/17 06:38 Dose: 100 mg Ceftriaxone Sodium 1 gm/ (Sodium Chloride) 100 mls @ 100 mls/hr IVPB DAILY [facility] Azithromycin 500 mg/ Sodium (Chloride) 250 mls @ 250 mls/hr IVPB DAILY [facility] Losartan Potassium (Cozaar) 50 mg PO DAILY [facility] Last Admin: 05/31/17 11:00 Dose: 50 mg Metformin HCl (Glucophage) 500 mg PO BID [facility] Last Admin: 05/31/17 11:00 Dose: 500 mg Methylprednisolone (Solu-Medrol) 40 mg IVP DAILY [facility] Mirtazapine (Remeron) 7.5 mg PO HS [facility] Morphine Sulfate (Morphine) 2 mg IVP Q4 PRN PRN Reason: Pain, severe (8-10) Last Admin: 05/31/17 06:54 Dose: 2 mg Oxycodone/Acetaminophen (Percocet 5/325 Mg Tab) 2 tab PO Q4H PRN PRN Reason: Pain, moderate (4-7) Stop: 06/02/17 22:34 Last Admin: 05/31/17 11:15 Dose: 2 tab - Labs Labs: 05/30/17 18:24 05/30/17 18:24 - Constitutional Appears: Non-toxic, No Acute Distress - Head Exam Head Exam: ATRAUMATIC - ENT Exam ENT Exam: Mucous Membranes Moist - Respiratory Exam Respiratory Exam: Wheezes. absent: Accessory Muscle Use, Rhonchi, Respiratory Distress - Cardiovascular Exam Cardiovascular Exam: REGULAR RHYTHM, +S1, +S2. absent: Gallop, Rubs, Murmur - GI/Abdominal Exam GI & Abdominal Exam: Soft, Normal Bowel Sounds. absent: Distended, Firm, Guarding, Rigid, Tenderness, Organomegaly - Extremities Exam Extremities Exam: absent: Pedal Edema - Neurological Exam Neurological Exam: Alert, Awake, Oriented x3 - Psychiatric Exam Psychiatric exam: Normal Affect, Normal Mood - Skin Skin Exam: Dry, Intact, Normal Color, Warm Assessment and Plan - Assessment and Plan (Free Text) Assessment: 56 year old female with past medical history of COPD, DM, OA, diverticulosis, depression, neuropathy is admitted for COPD exacerbation vs. PNA. In ED, CXR was negative. EKG was NSR and initial troponin was negative. ProBNP was also normal. Pt was given stat solumedrol 125 mg, rocephin and zithromax. COPD exacerbation Will continue rocephin and zithromax Will continue solumedrol 40 mg IV qd Continue albuterol breathing treatments Will check procal to rule out PNA NC prn to maintain O2 sat above 92% DM Will check Hgb A1c and lipid panel Continue home medication metformin, losartan, aspirin Will start pt on statin heart healthy diet Diabetic neuropathy Continue home med gabapentin Depression continue home medications wellbutrin and remeron and depakote Chronic pain Continue home medication percocet Morphine prn for severe pain Dysphagia will check barium swallow xray All recs and management per Dr. Peter
[2017-05-31] MEDS: Enoxaparin 40 mg Syringe SC SCH (12:45)
[2017-05-31 14:10] LABS: HDL CHOLESTEROL 22 mg/dL (30-70)
[2017-05-31 14:24] LABS: LDL CHOLESTEROL 112 mg/dL (0-129)
[2017-05-31] MEDS ORDERED: MethylPREDNISolone 40 mg Vial IVP SCH (18:00)
[2017-05-31] MEDS ORDERED: Rosuvastatin Calcium 2.5 mg Tab PO SCH (22:00)
[2017-06-01] MEDS: Albuterol 0.083% Inhal Sol (2.5 mg/3 mL) UD INH PRN (05:33)
[2017-06-01 06:37] LABS: HEMOGLOBIN 11.8 g/dL (11.0-16.0); MEAN CELL VOLUME 89.6 fL (81.0-99.0); MEAN CORPUSCULAR HEMOGLOBIN 30.8 pg (27.0-31.0); MEAN CORPUSCULAR HGB CONC 34.4 g/dL (33.0-37.0); MEAN PLATELET VOLUME 8.3 fL (7.2-11.7); RBC 3.82 Mil/uL (3.80-5.20); RED CELL DISTRIBUTION WIDTH 13.9 % (11.5-14.5); WHITE BLOOD COUNT 10.6 K/uL (4.8-10.8)
[2017-06-01 06:54] LABS: ALB/GLOB RATIO 1.2 (1.0-2.1); ALBUMIN 3.6 g/dL (3.5-5.0); ALT/SGPT 17 U/L (9-52); AST/SGOT 23 U/L (14-36); BLOOD UREA NITROGEN 18 mg/dL (7-17); GFR AFRICAN-AMERICAN > 60; GFR NON-AFRICAN AMERICAN > 60
--- NOTE | 2017-06-01 08:11 | HP ---
HISTORY OF PRESENT ILLNESS: The patient is a 56-year-old female who was complaining of weakness, fatigue, tiredness, shortness of breath. The patient came to the ER, advised admission. The patient has COPD. PHYSICAL EXAMINATION: GENERAL: The patient is awake, alert, oriented. VITAL SIGNS: Temperature 98, pulse 90. HEENT: Within normal limits. NECK: Supple. CHEST: Symmetrical. HEART: Regular. ABDOMEN: Soft. EXTREMITIES: No edema. IMPRESSION: The patient has chronic obstructive pulmonary disease, bronchitis, pneumonia. PLAN: The patient gets bedrest, supportive care, antibiotics.. Dwaine Peter MD
[2017-06-01] MEDS ORDERED: MethylPREDNISolone 40 mg Vial IVP SCH ×2 (10:00)
--- NOTE | 2017-06-01 10:21 | CP.PCM.PN ---
Subjective - Date & Time of Evaluation Date of Evaluation: 06/01/17 Time of Evaluation: 10:18 - Subjective Subjective: PGY2 progress note for Dr. Peter Pt seen and examined at bedside. Resting comfortably. No events overnight. Pt states breathing has improved. Cough is still present with clear sputum production. denies having any CP, abd pain, N/V/D/C, F/C. 12 point ROS negative except for above mentioned. Objective - Vital Signs/Intake and Output Vital Signs (last 24 hours): Temp Pulse Resp BP Pulse Ox 97.7 F 86 20 146/70 95 06/01/17 07:05 06/01/17 07:05 06/01/17 07:05 06/01/17 07:05 06/01/17 07:05 Intake and Output: 06/01/17 06/01/17 06:59 18:59 Intake Total 600 Balance 600 - Medications Medications: Current Medications Albuterol Sulfate (Albuterol 0.083% Inhal Angela (2.5 Mg/3 Ml) Ud) 2.5 mg INH RQ2 PRN PRN Reason: Shortness of Breath Last Admin: 06/01/17 05:33 Dose: 2.5 mg Aspirin (Ecotrin) 81 mg PO DAILY [facility] Last Admin: 05/31/17 11:00 Dose: 81 mg Bupropion HCl (Wellbutrin Sr 150 Mg) 150 mg PO DAILY [facility] Last Admin: 05/31/17 11:00 Dose: 150 mg Divalproex Sodium (Depakote Dr Tab) 125 mg PO DAILY [facility] Last Admin: 05/31/17 11:00 Dose: 125 mg Enoxaparin Sodium (Lovenox) 40 mg SC DAILY [facility] Last Admin: 05/31/17 12:45 Dose: 40 mg Gabapentin (Neurontin) 200 mg PO TID [facility] Last Admin: 05/31/17 19:00 Dose: 200 mg Guaifenesin (Robitussin) 100 mg PO Q4H PRN PRN Reason: Cough Last Admin: 05/31/17 22:26 Dose: 100 mg Ceftriaxone Sodium 1 gm/ (Sodium Chloride) 100 mls @ 100 mls/hr IVPB DAILY [facility] Azithromycin 500 mg/ Dextrose 250 mls @ 250 mls/hr IVPB DAILY [facility] Losartan Potassium (Cozaar) 50 mg PO DAILY [facility] Last Admin: 05/31/17 11:00 Dose: 50 mg Metformin HCl (Glucophage) 500 mg PO BID [facility] Last Admin: 05/31/17 19:00 Dose: 500 mg Methylprednisolone (Solu-Medrol) 40 mg IVP DAILY [facility] Mirtazapine (Remeron) 7.5 mg PO HS [facility] Last Admin: 05/31/17 22:26 Dose: 7.5 mg Morphine Sulfate (Morphine) 2 mg IVP Q4 PRN PRN Reason: Pain, severe (8-10) Last Admin: 05/31/17 06:54 Dose: 2 mg Nicotine (Nicoderm Cq) 1 patch TD DAILY [facility] Last Admin: 05/31/17 12:45 Dose: Not Given Oxycodone/Acetaminophen (Percocet 5/325 Mg Tab) 2 tab PO Q4H PRN PRN Reason: Pain, moderate (4-7) Stop: 06/02/17 22:34 Last Admin: 05/31/17 19:13 Dose: 2 tab Rosuvastatin Calcium (Crestor) 2.5 mg PO [facility] Last Admin: 05/31/17 22:26 Dose: 2.5 mg - Labs Labs: 06/01/17 06:23 06/01/17 06:23 - Constitutional Appears: Non-toxic, No Acute Distress - Head Exam Head Exam: ATRAUMATIC - ENT Exam ENT Exam: Mucous Membranes Moist - Respiratory Exam Respiratory Exam: Clear to Ausculation Bilateral. absent: Accessory Muscle Use , Rales, Rhonchi, Wheezes, Respiratory Distress - Cardiovascular Exam Cardiovascular Exam: REGULAR RHYTHM, +S1, +S2. absent: Gallop, Rubs, Murmur - GI/Abdominal Exam GI & Abdominal Exam: Soft, Normal Bowel Sounds. absent: Distended, Firm, Guarding, Rigid, Tenderness, Organomegaly - Extremities Exam Extremities Exam: absent: Pedal Edema, Tenderness - Neurological Exam Neurological Exam: Alert, Awake, Oriented x3 - Psychiatric Exam Psychiatric exam: Normal Affect, Normal Mood - Skin Skin Exam: Dry, Intact, Normal Color, Warm Assessment and Plan - Assessment and Plan (Free Text) Assessment: 56 year old female with past medical history of COPD, DM, OA, diverticulosis, depression, neuropathy is admitted for COPD exacerbation vs. PNA. In ED, CXR was negative. EKG was NSR and initial troponin was negative. ProBNP was also normal. Pt was given stat solumedrol 125 mg, rocephin and zithromax. COPD exacerbation Procal checked was negative. will consider d/cing Abx. currently on zothromax and rocephin solumedrol 40 mg IV qd Continue albuterol breathing treatments NC prn to maintain O2 sat above 92% Will check o2 sat off NC to assess resp functional status DM HgbA1c is 7.7, lipid panel shows low HDL Continue home medication metformin, losartan, aspirin Will start pt on statin heart healthy diet Diabetic neuropathy Continue home med gabapentin Depression continue home medications wellbutrin and remeron and depakote Chronic pain Continue home medication percocet Morphine prn for severe pain Dysphagia consider getting barium swallow as outpt All recs and management per Dr. Peter Patient is safe for discharge home per Dr. Peter Patient is to follow up with PMD upon discharge Please follow up with GI specialist upon discharge. Patient is discharged with the following new medications: Spiriva inhaler 2 puffs daily; robitussin 100 mg/5mL po q4h dispense 1 bottle; Crestor 2.5 mg po HS; Medrol dose pack take 5 tablets on day 1, 4 tablets on day 2, 3 tablets on day 3, 2 tablets on day 2 and 1 tablet on day 1. Continue home medications as prescribed. Discussed the adverse risks of smoking and recommended cessation.
[2017-06-01] MEDS: buPROPion SR 150 MG TABLET PO SCH (10:24)
[2017-06-01] MEDS: Divalproex 125 mg DR Tab PO SCH (10:24)
[2017-06-01] MEDS: Enoxaparin 40 mg Syringe SC SCH (10:25)
--- NOTE | 2017-06-01 10:38 | CARD ---
APPROVED REPORT EKG Measurement Heart [id number] <Conclusion> Normal sinus rhythm Low voltage QRS Borderline ECG
[2017-06-01 16:50] VITALS: BP 136/81; PULSE 91; TEMP 98.2; O2SAT 93
== END 2017-06-01 18:07 | disposition home or self-care (01) | DRG 190 ==
LOC: C.ER 17:47 → C.9E 20:55 → C.5S 05-31 09:07
PROVIDERS: ADMIT Internal Medicine Pulmonary Disease; ATTEND Internal Medicine Pulmonary Disease
DX: J44.0 Chronic obstructive pulmonary disease with (acute) lower respiratory infection (principal); J18.9 Pneumonia, unspecified organism; E11.40 Type 2 diabetes mellitus with diabetic neuropathy, unspecified; J45.902 Unspecified asthma with status asthmaticus; R13.10 Dysphagia, unspecified; K57.90 Diverticulosis of intestine, part unspecified, without perforation or abscess without bleeding; F41.9 Anxiety disorder, unspecified; F32.9 Major depressive disorder, single episode, unspecified; I10 Essential (primary) hypertension; E78.00 Pure hypercholesterolemia, unspecified; M81.0 Age-related osteoporosis without current pathological fracture; J20.9 Acute bronchitis, unspecified; J44.1 Chronic obstructive pulmonary disease with (acute) exacerbation; F17.210 Nicotine dependence, cigarettes, uncomplicated; G89.29 Other chronic pain

== ENCOUNTER 2018-07-22 13:17 | Emergency (ER) | payer MEDICARE, OTHER | END 2018-07-22 15:24 | disposition home or self-care (01) | LOC: C.ER 13:17 ==